=== PATIENT | male | born 1965 | race Caucasian/White ===

== ENCOUNTER 2020-01-29 10:53 | Emergency (ER) | payer BC, SELFPAY ==
--- NOTE | 2020-01-29 11:03 | ED.SKABFB ---
HPI - Skin/Abscess/Foreign Bdy General Chief complaint: Skin/Abscess/Foreign Body Stated complaint: burn to r forearm Time Seen by Provider: 01/29/20 11:04 Source: patient and RN notes reviewed History of Present Illness HPI narrative: Patient is a 54-year-old male who presents the urgent care with complaints of a right forearm burn. Patient states it occurred on Sunday when he was attempting to turn off the grill and burned it on the underneath portion. Patient states that he has been using [id number] silver-cream and aloe vera. Patient states that he covered it yesterday with a Tegaderm and feels that he may have ruin the healing process . Patient is also requesting a tetanus shot because he has not had 1 in the last 10 years. Patient is aware that it will not cover his recent injury on Sunday. Patient denies of any redness, swelling, pain to the burn. No other acute complaints or injuries. No acute distress noted. Patient read the plan of care. Related Data Home Medications Medication Instructions Recorded Confirmed omega 5-kdy-wbn-fish oil [Fish Oil] 1 cap PO DAILY 01/29/20 01/29/20 Allergies Allergy/AdvReac Type Severity Reaction Status Date / Time No Known Allergies Allergy Unverified 01/29/20 11:07 Review of Systems Review of Systems: Narrative: CONSTITUTIONAL: Denies fever, chills, or sweats. EYES: Denies visual changes, redness, or discharge. ENT: Denies rhinorrhea, congestion, sore throat, or otalgia. CARDIOVASCULAR: Denies chest pain, palpitations, or edema. RESPIRATORY: Denies cough or dyspnea. GASTROINTESTINAL: Denies abdominal pain, nausea, vomiting, or diarrhea. GENITOURINARY: Denies dysuria or hematuria. SKIN: Reports of a burn to the right forearm MUSCULOSKELETAL: Denies back pain, joint pain, or myalgia. NEUROLOGIC: Denies headache, numbness, or weakness. All other systems reviewed are negative, except as documented in HPI. [facility] Family History Family History (Updated 03/19/14 @ 07:13 by DOCTOR UNKNOWN) Mother Family history of osteoarthritis Social History Social History Smoking status: Never smoker Alcohol intake: current Comments At the time of my signature, I reviewed and agree with the nursing past medical, surgical, social, and family history. There is no relevant family history pertinent to the patient complaint. Exam Narrative: Exam Narrative: GENERAL: This is a well-nourished, well-developed patient, in no apparent distress. HEAD: normocephalic, atraumatic. EYES: PERRL. Sclera clear/white. Vision is grossly intact. EARS: External ears normal NOSE: External nose normal with no obvious nasal discharge, nares without redness, no rhinorrhea. THROAT: Mucous membranes moist NECK: Neck supple SKIN: Approximately 4 cm in length triangular healing first-degree burn to the top of the right forearm with notable scabbing; no surrounding erythema or edema NEURO: awake, alert, and oriented to person, place and time. There were no obvious focal neurologic abnormalities. EXTREMITIES: No clubbing, cyanosis, or edema. Course Vital Signs Vital signs: Vital Signs Temperature 97.7 F 01/29/20 11:10 Pulse Rate 55 L 01/29/20 11:10 Respiratory Rate 18 01/29/20 11:10 Blood Pressure 129/69 01/29/20 11:10 Pulse Oximetry 98 01/29/20 11:10 Temperature 97.7 F 01/29/20 11:10 Pulse Rate 55 L 01/29/20 11:10 Respiratory Rate 18 01/29/20 11:10 Blood Pressure 129/69 01/29/20 11:10 Pulse Oximetry 98 01/29/20 11:10 Reviewed MDM - Skin/Abscess/Foreign Bdy MDM Narrative Medical decision making narrative: Advised the patient to clean the wound twice a day with plain Dial soap and water. You do not have to scrub over the area. Allow it to heal and scab. Do not pick off the scabs. Use Silvadene cream to the area twice a day for the next 5 to 7 days, and no longer. A very little goes a long way. If you notice any increased swelling, redness, fever?go to
[2020-01-29 11:10] VITALS: BP 129/69; PULSE 55; RESP 18; TEMP 36.5; O2SAT 98
--- NOTE | 2020-01-29 11:38 | PC.NURSE ---
Tdap given - lot#[id number] EXP 02/27/2021 TDAP VACCINE INFORMATION SHEET GIVEN PUBLICATION 09/15/2014
== END 2020-01-29 11:50 | disposition home or self-care (01) ==
PROVIDERS: Emergency Provider Nurse Practitioner Family; PCP Family Medicine
DX: T22.111A Burn of first degree of right forearm, initial encounter (principal); X19.XXXA Contact with other heat and hot substances, initial encounter; Z23 Encounter for immunization
CPT/HCPCS: 90471; 90714; 96372; 99213; A9270; G0463